=== PATIENT | female | born 1945 | race Caucasian/White ===

== ENCOUNTER 2017-12-19 18:11 | Emergency (ER) | payer MEDICARE, OTHER ==
[~2017-12-19] VITALS: Ht 162.6 cm; Wt 78.0 kg
--- NOTE | 2017-12-19 18:36 | NUR ---
Dr Heller is at bedside evaluating the patient, pending MD orders
[2017-12-19] MEDS ORDERED: predniSONE 50 MG TABLET ONE (19:08)
[2017-12-19] MEDS: predniSONE 50 MG TABLET PO ONE (19:13)
[2017-12-19] MEDS ORDERED: ONDANSETRON ODT 4 MG TAB.RAPDIS ONE (19:15)
[2017-12-19] MEDS: ONDANSETRON ODT 4 MG TAB.RAPDIS SL ONE (19:16)
--- NOTE | 2017-12-19 19:16 | NUR ---
Patient discharged to home in stable conditon. Written and verbal after care instructions given to patient. Patient verbalizes understanding of instructions. Patient left with family, +steady gait.
== END 2017-12-19 19:27 | disposition home or self-care (01) ==
LOC: ER 18:11
DX: I10 Essential (primary) hypertension (principal); J40 Bronchitis, not specified as acute or chronic; R20.0 Anesthesia of skin; F41.9 Anxiety disorder, unspecified; E11.9 Type 2 diabetes mellitus without complications; F17.210 Nicotine dependence, cigarettes, uncomplicated; Z88.0 Allergy status to penicillin; Z88.2 Allergy status to sulfonamides; Z88.1 Allergy status to other antibiotic agents; Z88.8 Allergy status to other drugs, medicaments and biological substances
CPT/HCPCS: A4663; J7512; Q0162